=== PATIENT | male | born 1945 | race Caucasian/White ===

== ENCOUNTER 2020-10-16 15:38 | Emergency (ER) | payer MEDICARE, OTHER ==
[~2020-10-16] VITALS: Ht 165.1 cm; Wt 97.1 kg
[2020-10-16 15:43] VITALS: BP 183/53
--- NOTE | 2020-10-16 15:50 | ED Fall/Injury ---
General Chief Complaint: Trauma-Non Activation Stated Complaint: FALL - RIBS INJ History of Present Illness Date Seen by Provider: Oct 16, 2020 Time Seen by Provider: 15:50 Initial Comments 75-year-old male presents with right rib/chest wall pain. Patient reports he was walking when his feet got tangled and that he fell. When he fell he hit the ground is complaining of pain in his anterior right chest wall. Hurts with inspiration and palpation. Minor shortness of breath to the pain. He has a small abrasion size nonsuturable laceration on the palm of his left hand. Patient suffered no other injuries. Allergies and Home Medications Allergies Coded Allergies: verapamil (Verified Allergy, Unknown, 10/16/20) Patient Home Medication List Home Medication List Reviewed: Yes Review of Systems Review of Systems Constitutional: no symptoms reported; No chills, No fever Eyes: No Symptoms Reported Ears, Nose, Mouth, Throat: no symptoms reported Respiratory: short of breath (Due to pain) Cardiovascular: see HPI Gastrointestinal: no symptoms reported Genitourinary: no symptoms reported Musculoskeletal: see HPI Skin: see HPI Psychiatric/Neurological: No Symptoms Reported Past Djszgqu-Arbory-Hzoaco Hx Past Med/Social Hx: Reviewed Nursing Past Med/Soc Hx Physical Exam Vital Signs Vital Signs - First Documented 10/16/20 15:43 Temp 36.5 Pulse 60 Resp 18 B/P (MAP) 183/53 (96) Pulse Ox 97 O2 Delivery Room Air Capillary Refill : Height, Weight, BMI Height: '" Weight: lbs. oz. kg; BMI Method: General Appearance: mild distress HEENT: PERRL/EOMI Neck: full range of motion, supple Cardiovascular: normal peripheral pulses, regular rate, rhythm Respiratory: lungs clear, normal breath sounds, other (Right chest wall right below the breast tender to palpation, no crepitus noted) Gastrointestinal: non tender, soft Extremities: non-tender, normal inspection Neurologic/Psychiatric: alert, normal mood/affect, oriented x 3 Skin: other (Small abrasion/laceration on the palm of the left hand is nonsuturable) Progress/Results/Core Measures Results/Orders My Orders Orders - KATIA SAWANT DO Ribs/Unilateral With Chest (10/16/20 15:52) Dipht,Pertuss(Acell),Tet Adult (Boostrix (10/16/20 16:00) Medications Given in ED Current Medications Medications Dose Ordered Sig/Sandra Route Start Time Stop Time Status Last Admin Dose Admin Diphtheria/ Tetanus/Acell Pertussis 0.5 ml ONCE ONCE IM 10/16/20 16:00 10/16/20 16:01 DC 10/16/20 16:13 0.5 ML Vital Signs/I&O 10/16/20 15:43 Temp 36.5 Pulse 60 Resp 18 B/P (MAP) 183/53 (96) Pulse Ox 97 O2 Delivery Room Air Progress Progress Note : Progress Note Patient exam and x-ray consistent with rib fracture. Patient recommended to use 800 mg ibuprofen 3 times a day, 4% topical lidocaine with menthol, ice to affected area, I will prescribe him a few hydrocodone's for pain control. He should follow-up with a primary care provider as needed. Diagnostic Imaging Diagonstic Imaging: Xray Plain Films/CT/US/NM/MRI: chest Comments Date of Exam:10/16/20 RIBS/UNILATERAL WITH CHEST INDICATION: Fall with right mid chest pain. COMPARISON: None available. TECHNIQUE: PA chest with 2 views of the right ribs. FINDINGS: The lungs are clear. No pleural effusion or pneumothorax. Moderate size hiatal hernia. Heart is enlarged with a right pectoral single chamber pacemaker/ICD. Potential nondisplaced fracture in the anterior right 7th rib. IMPRESSION: 1. Potential nondisplaced fracture in the anterior right 7th rib. If this does not correspond to the site of pain, then this may simply represent summation of the normal costochondral junction. 2. No pneumothorax or other acute cardiopulmonary process. 3. Moderate size hiatal hernia. Reviewed: Reviewed by Me, Reviewed/Discussed Departure Impression Primary Impression: Closed rib fracture Qualified Codes: S22.31XA - Fracture of one rib, right side, initial encounter for closed fracture Disposition: HOME, SELF-CARE Condition: Stable Departure-Patient Inst. Referrals: ANDREA BATISTA MD (PCP/Family) Primary Care Physician Patient Instructions: Rib Fracture or Bruised Rib ED Add. Discharge Instructions: 800 mg ibuprofen 3 times daily as needed for pain 4% topical lidocaine with menthol over the affected area as directed on package as needed for pain Ice 2-3 times daily for 20 minutes as needed for pain All discharge instructions reviewed with patient and/or family. Voiced understanding. Scripts Hydrocodone/Acetaminophen (Hydrocodone-Acetamin 5-325 mg) 1 Each Tablet 1 TAB PO Q8H PRN for PAIN-MODERATE (5-7), #10 TAB Prov: KATIA SAWANT DO 10/16/20 KATIA ASWANT DO Oct 16, 2020 15:50
[2020-10-16] MEDS ORDERED: TETANUS,DIPTH,PERTUSS P/F (BOOSTRIX) 0.5 ML VIAL IM ONE (16:00)
--- NOTE | 2020-10-16 16:21 | Diagnostic Imaging Report ---
INDICATION: Fall with right mid chest pain. COMPARISON: None available. TECHNIQUE: PA chest with 2 views of the right ribs. FINDINGS: The lungs are clear. No pleural effusion or pneumothorax. Moderate size hiatal hernia. Heart is enlarged with a right pectoral single chamber pacemaker/ICD. Potential nondisplaced fracture in the anterior right 7th rib. IMPRESSION: 1. Potential nondisplaced fracture in the anterior right 7th rib. If this does not correspond to the site of pain, then this may simply represent summation of the normal costochondral junction. 2. No pneumothorax or other acute cardiopulmonary process. 3. Moderate size hiatal hernia. Dictated by: Dictated on workstation # [id number]
[2020-10-16] MEDS ORDERED: ACHD5005 PO (16:43)
== END 2020-10-16 16:52 | disposition home or self-care (01) ==
LOC: EDUNIT# 15:38 → ER FS 15:40
DX: Z48.02 Encounter for removal of sutures (principal)
CPT/HCPCS: 71101; 90715

== ENCOUNTER 2021-07-04 15:32 | Emergency (ER) | payer MEDICARE, OTHER ==
[~2021-07-04] VITALS: Ht 167.7 cm; Wt 101.6 kg
[~2021-07-04 15:32] MED LIST: ACHD5005 PO
--- NOTE | 2021-07-04 15:54 | ED Respiratory ---
General Chief Complaint: Abdominal/GI Problems Stated Complaint: CONGESTION,SOA,BODY ACHES Source: patient Exam Limitations: no limitations History of Present Illness Date Seen by Provider: Jul 04, 2021 Time Seen by Provider: 15:40 Initial Comments 75-year-old male with past medical history of HOCM, pAfib on Eliquis, HTN coming in due to worsening cough with shortness of breath, subjective fever with body aches for the past 2 weeks. He says he has been feeling more short of breath over the past week. He has had COVID vaccines x3 and has not had COVID that he knows of. Is unsure if he has been around anyone sick recently. Had Tylenol last around 6 hours ago. Denies any real chest pain, abdominal pain, nausea, vomiting, diarrhea, dysuria, weakness, numbness, rash, headache, vision changes, or any other concerns. He has been taking all of his medications as prescribed and has not missed any doses including of his Eliquis. Allergies and Home Medications Allergies Coded Allergies: verapamil (Verified Allergy, Unknown, 10/16/20) Patient Home Medication List Home Medication List Reviewed: Yes Hydrocodone/Acetaminophen (Hydrocodone-Acetamin 5-325 mg) 1 Each Tablet, 1 TAB PO Q8H PRN for PAIN-MODERATE (5-7) Prescribed by: KATIA SAWANT on 10/16/20 1982 Review of Systems Review of Systems Constitutional: No chills; fever EENTM: No blurred vision Respiratory: cough, short of breath Cardiovascular: no symptoms reported Gastrointestinal: no symptoms reported Genitourinary: no symptoms reported Musculoskeletal: no symptoms reported Skin: no symptoms reported Psychiatric/Neurological: No Symptoms Reported Hematologic/Lymphatic: No Symptoms Reported Immunological/Allergic: no symptoms reported All Other Systems Reviewed Negative Unless Noted: Yes Past Uahruey-Aohqwk-Fisgsv Hx Patient Social History Tobacco Use?: No Substance use?: No Alcohol Use?: No Seasonal Allergies Seasonal Allergies: No Past Medical History Surgeries: Yes (knee) Respiratory: No Cardiac: Yes Atrial Fibrillation, Cardiomyopathy Neurological: No Genitourinary: No Gastrointestinal: No Musculoskeletal: No Endocrine: No HEENT: No Cancer: No Psychosocial: No Integumentary: No Blood Disorders: No Physical Exam Vital Signs - First Documented 07/04/21 15:37 Temp 36.6 Pulse 89 Resp 18 B/P (MAP) 154/74 (100) O2 Delivery Room Air Capillary Refill : Height: '" Weight: lbs. oz. kg; 35.00 BMI Method: General Appearance: WD/WN, no apparent distress Eyes: Bilateral Eye Normal Inspection HEENT: PERRL/EOMI, normal ENT inspection, pharynx normal Neck: non-tender, full range of motion, supple, normal inspection Respiratory: chest non-tender, lungs clear, normal breath sounds, no respiratory distress, no accessory muscle use Cardiovascular: regular rate, rhythm, no edema Gastrointestinal: normal bowel sounds, non tender, soft; No distended, No guarding Extremities: normal range of motion, non-tender, normal inspection, no pedal edema, no calf tenderness, normal capillary refill Neurologic/Psychiatric: no motor/sensory deficits, alert, normal mood/affect Skin: normal color, warm/dry Lymphatic: no adenopathy Progress/Results/Core Measures Suspected Sepsis SIRS Temperature: Pulse: Respiratory Rate: Laboratory Tests 07/04/21 16:00: White Blood Count 11.2H Blood Pressure / Mean: Laboratory Tests 07/04/21 16:00: Creatinine 0.83, INR Comment 1.1, Platelet Count 167, Total Bilirubin 0.5 Results/Orders Lab Results Laboratory Tests Test 07/04/21 16:00 07/04/21 16:05 Range/Units White Blood Count 11.2 H 4.3-11.0 10^3/uL Red Blood Count 3.58 L 4.30-5.52 10^6/uL Hemoglobin 11.4 L 13.3-17.7 g/dL Hematocrit 33 L 40-54 % Mean Corpuscular Volume 93 80-99 fL Mean Corpuscular Hemoglobin 32 25-34 pg Mean Corpuscular Hemoglobin Concent 34 32-36 g/dL Red Cell Distribution Width 13.0 10.0-14.5 % Platelet Count 167 130-400 10^3/uL Mean Platelet Volume 11.3 9.0-12.2 fL Immature Granulocyte % (Auto) 0 % Neutrophils (%) (Auto) 71 42-75 % Lymphocytes (%) (Auto) 11 L 12-44 % Monocytes (%) (Auto) 15 H 0-12 % Eosinophils (%) (Auto) 3 0-10 % Basophils (%) (Auto) 1 0-10 % Neutrophils # (Auto) 8.0 H 1.8-7.8 10^3/uL Lymphocytes # (Auto) 1.2 1.0-4.0 10^3/uL Monocytes # (Auto) 1.6 H 0.0-1.0 10^3/uL Eosinophils # (Auto) 0.3 0.0-0.3 10^3/uL Basophils # (Auto) 0.1 0.0-0.1 10^3/uL Immature Granulocyte # (Auto) 0.0 0.0-0.1 10^3/uL Prothrombin Time 14.7 12.2-14.7 SEC INR Comment 1.1 0.8-1.4 Activated Partial Thromboplast Time 40 H 24-35 SEC Sodium Level 137 135-145 MMOL/L Potassium Level 3.9 3.6-5.0 MMOL/L Chloride Level 103 98-107 MMOL/L Carbon Dioxide Level 23 21-32 MMOL/L Anion Gap 11 5-14 MMOL/L Blood Urea Nitrogen 12 7-18 MG/DL Creatinine 0.83 0.60-1.30 MG/DL Estimat Glomerular Filtration Rate 92 BUN/Creatinine Ratio 14 Glucose Level 169 H 70-105 MG/DL Calcium Level 8.8 8.5-10.1 MG/DL Corrected Calcium 8.9 8.5-10.1 MG/DL Total Bilirubin 0.5 0.1-1.0 MG/DL Aspartate Amino Transf (AST/SGOT) 27 5-34 U/L Alanine Aminotransferase (ALT/SGPT) 25 0-55 U/L Alkaline Phosphatase 80 40-136 U/L Troponin I < 0.30 <0.30 NG/ML Pro-B-Type Natriuretic Peptide 939.6 H <75.0 PG/ML Total Protein 6.7 6.4-8.2 GM/DL Albumin 3.9 3.2-4.5 GM/DL Influenza Type A Antigen NEGATIVE NEGATIVE Influenza Type B Antigen NEGATIVE NEGATIVE My Orders Orders - MANGO MACDONALD MD Cbc With Automated Diff (07/04/21 15:49) Chest 1 View Ap/Pa Only (07/04/21 15:49) Ekg Tracing (07/04/21 15:49) Comprehensive Metabolic Panel (07/04/21 15:49) Protime With Inr (07/04/21 15:49) Partial Thromboplastin Time (07/04/21 15:49) O2 (07/04/21 15:49) Monitor-Rhythm Ecg Trace Only (07/04/21 15:49) Ed Iv/Invasive Line Start (07/04/21 15:49) Troponin I Fs (07/04/21 15:49) Probnp Fs (07/04/21 15:49) Covid 19 Inhouse Test (07/04/21 15:49) Influenza A & B Antigens (07/04/21 15:49) Vital Signs/I&O 07/04/21 07/04/21 15:37 15:37 Temp 36.6 Pulse 89 Resp 18 B/P (MAP) 154/74 (100) O2 Delivery Room Air Room Air Capillary Refill : Progress Note : Progress Note 75-year-old male with above history coming in due to a couple weeks of viral symptoms including cough and shortness of breath. ABCs were intact and vitals were stable on presentation. Physical exam was reassuring with no focal abnormalities including clear lungs. He appears to be breathing comfortably mos t importantly. Chest x-ray clear on my interpretation with no signs of pneumonia or pneumothorax. An IV was placed and basic labs were obtained including a negative troponin, BNP around 900 with no prior baseline. He does have some lower extremity edema that is mild. He does take Lasix daily. Flu test is negative and Covid test is pending at this time. Likely does have some type of viral infection that is brewing versus COVID. He is fully vaccinated and boosted and given he is not requiring oxygen I believe he is appropriate for discharge home. He was sent home with strict return precautions. ECG Initial ECG Impression Date: Jul 04, 2021 Initial ECG Impression Time: 15:54 Initial ECG Rate: 61 Initial ECG Rhythm: Normal Sinus Comment Narrow QRS, normal axis, no significant ST changes, T wave inversions in the high lateral leads and some flattening in the inferior leads, baseline artifact, no prior EKG to compare to Diagnostic Imaging Diagonstic Imaging: Xray (chest) Comments [facility]Push Computing [facility]. [place], [place] NAME: ANDREA BOOKER [facility] REC#: [id number] PT STATUS: REG ER : 1945 PHYSICIAN: MANGO MACDONALD MD ADMIT DATE: 07/04/21/ER FS Draft Date of Exam:07/04/21 CHEST 1 VIEW AP/PA ONLY INDICATION: Dyspnea. COMPARISON: 10/16/2020. FINDINGS: There is borderline cardiomegaly. Pulmonary vascularity is at the upper limits of normal. There is focal increased density in the mid portion of the right lung. This area may have been obscured by pacemaker battery on the previous study. No pneumothorax or definite pleural fluid is identified. IMPRESSION: Focal density lateral to the right hilum may represent area of focal infiltrate or scarring. This region was obscured on the previous study, which limits comparison. Otherwise, no acute abnormality is seen. Dictated on workstation # [id number] Dict: 07/04/21 1610 Trans: 07/04/21 1613 [id number] Interpreted by: INDIRA JONES MD Electronically signed by: Departure Impression Primary Impression: URI (upper respiratory infection) Qualified Codes: J06.9 - Acute upper respiratory infection, unspecified Additional Impression: Person under investigation for COVID-19 Disposition: 01 HOME, SELF-CARE Condition: Stable Departure-Patient Inst. Decision time for Depature: 17:01 Referrals: ANDREA BATISTA MD (PCP/Family) Primary Care Physician Patient Instructions: Upper Respiratory Infection ED Add. Discharge Instructions: You were seen in the emergency department for cough and shortness of breath. Your Covid test is pending and should be back tomorrow. Your flu test is negative and your chest x-ray looks clear, so you have no signs of pneumonia. Please follow-up with your regular doctor in the next 3 days or sooner if you are not feeling better. If you begin having chest pain or severe shortness of breath please come back to the ER. I recommend doubling the dose of your Lasix for the next couple of days. MANGO MACDONALD MD Jul 04, 2021 15:54
[2021-07-04 16:04] LABS: BASOPHILS # (AUTO) 0.1 10^3/uL (0.0-0.1); BASOPHILS % (AUTO) 1 % (0-10); EOSINOPHILS # (AUTO) 0.3 10^3/uL (0.0-0.3); EOSINOPHILS % (AUTO) 3 % (0-10); HEMATOCRIT 33 % (40-54); HEMOGLOBIN 11.4 g/dL (13.3-17.7); LYMPHOCYTES # (AUTO) 1.2 10^3/uL (1.0-4.0); LYMPHOCYTES % (AUTO) 11 % (12-44); MEAN CORPUSCULAR HEMOGLOBIN 32 pg (25-34); MEAN CORPUSCULAR HGB CONC 34 g/dL (32-36); MEAN CORPUSCULAR VOLUME 93 fL (80-99); MEAN PLATELET VOLUME 11.3 fL (9.0-12.2); MONOCYTES # (AUTO) 1.6 10^3/uL (0.0-1.0); MONOCYTES % (AUTO) 15 % (0-12); NEUTROPHILS % (AUTO) 71 % (42-75); PLATELET COUNT 167 10^3/uL (130-400); WHITE BLOOD COUNT 11.2 10^3/uL (4.3-11.0)
--- NOTE | 2021-07-04 16:13 | Diagnostic Imaging Report ---
INDICATION: Dyspnea. COMPARISON: 10/16/2020. FINDINGS: There is borderline cardiomegaly. Pulmonary vascularity is at the upper limits of normal. There is focal increased density in the mid portion of the right lung. This area may have been obscured by pacemaker battery on the previous study. No pneumothorax or definite pleural fluid is identified. IMPRESSION: Focal density lateral to the right hilum may represent area of focal infiltrate or scarring. This region was obscured on the previous study, which limits comparison. Otherwise, no acute abnormality is seen. Dictated by: Dictated on workstation # [id number]
[2021-07-04 16:18] LABS: INR 1.1 (0.8-1.4); PROTHROMBIN TIME PATIENT 14.7 SEC (12.2-14.7)
[2021-07-04 16:30] LABS: ALBUMIN 3.9 GM/DL (3.2-4.5); BILIRUBIN,TOTAL 0.5 MG/DL (0.1-1.0); CALCIUM 8.8 MG/DL (8.5-10.1); CREATININE SERUM 0.83 MG/DL (0.60-1.30); POTASSIUM 3.9 MMOL/L (3.6-5.0); TOTAL PROTEIN 6.7 GM/DL (6.4-8.2)
[2021-07-04 17:15] VITALS: BP 148/76
== END 2021-07-04 17:15 | disposition home or self-care (01) ==
LOC: EDUNIT# 15:32 → ER FS 15:33
DX: J06.9 Acute upper respiratory infection, unspecified (principal); I48.0 Paroxysmal atrial fibrillation; Z20.822 Contact with and (suspected) exposure to COVID-19; Z79.01 Long term (current) use of anticoagulants
CPT/HCPCS: 36415; 71045; 80053; 83880; 84484; 85025; 85610; 85730; 87636; 87804; 93005; 93041

== ENCOUNTER 2022-04-12 03:35 | Emergency (ER) | payer MEDICARE ==
[~2022-04-12] VITALS: Ht 165.1 cm; Wt 92.0 kg
[2022-04-12] MEDS ORDERED: NS IV 500 ML 500 ML IV STA (03:49)
[2022-04-12] MEDS ORDERED: morphine INJ 10 MG/ML 1ML (SYR OR VIAL) IVP STA (03:49)
--- NOTE | 2022-04-12 03:53 | ED Abdominal Pain ---
General Stated Complaint: LT SIDE PAIN Source of Information: Patient Exam Limitations: No Limitations History of Present Illness Date Seen by Provider: Apr 12, 2022 Time Seen by Provider: 03:40 Initial Comments 76-year-old male presents to the emergency department today for right lower flank pain. He states symptoms started about 4:00 this afternoon yesterday. He does have a history of kidney stones but has not had one for about 10 years. He states this pain feels exactly the same as previous pain with kidney stones. No hematuria, dysuria. No changes in bowels with last bowel movement yesterday. No nausea vomiting or fevers. Pain is described as sharp stabbing constant without radiation, aggravating or alleviating factors. Severe. Allergies and Home Medications Allergies Coded Allergies: verapamil (Verified Allergy, Unknown, 10/16/20) Penicillins (Unverified Adverse Reaction, Unknown, 04/12/22) Patient Home Medication List Home Medication List Reviewed: Yes Apixaban (Eliquis) 5 Mg Tablet, 5 MG PO BID, (Reported) Entered as Reported by: JAQUELINE RIVERA on 04/12/22405 Last Action: New Order Cyclobenzaprine HCl (Cyclobenzaprine HCl) 10 Mg Tablet, 10 MG PO Q8H PRN for SPASMS, (Reported) Entered as Reported by: JAQUELINE RIVERA on 04/12/22405 Last Action: New Order Furosemide (Furosemide) 20 Mg Tablet, 20 MG PO DAILY, (Reported) Entered as Reported by: JAQUELINE RIVERA on 04/12/22405 Last Action: New Order Hydrocodone/Acetaminophen (Hydrocodone-Acetamin 5-325 mg) 1 Each Tablet, 1 TAB PO Q8H PRN for PAIN-MODERATE (5-7) Prescribed by: KATIA SAWANT on 10/16/20 1644 Spironolactone (Aldactone) 25 Mg Tablet, 25 MG PO DAILY, (Reported) Entered as Reported by: JAQUELINE RIVERA on 04/12/22405 Last Action: New Order Tamsulosin HCl (Flomax) 0.4 Mg Cap, 0.4 MG PO DAILY, (Reported) Entered as Reported by: JAQUELINE RIVERA on 04/12/22405 Last Action: New Order Zolpidem Tartrate (Ambien) 10 Mg Tablet, 10 MG PO HS, (Reported) Entered as Reported by: JAQUELINE RIVERA on 04/12/22 0406 Last Action: New Order Review of Systems Review of Systems Constitutional: no symptoms reported EENTM: No Symptoms Reported Respiratory: No Symptoms Reported Cardiovascular: No Symptoms Reported Gastrointestinal: No Symptoms Reported Genitourinary: Denies Burning, Denies Frequency; Flank Pain; Denies Hematuria Musculoskeletal: no symptoms reported Skin: no symptoms reported Psychiatric/Neurological: No Symptoms Reported Endocrine: No Symptoms Reported Hematologic/Lymphatic: No Symptoms Reported Past Awjnsqo-Icxscz-Qckrzd Hx Patient Social History Tobacco Use?: No Use of E-Cig and/or Vaping dev: No Substance use?: No Alcohol Use?: No Seasonal Allergies Seasonal Allergies: No Past Medical History Surgeries: Yes (knee) Respiratory: No Cardiac: Yes Atrial Fibrillation, Cardiomyopathy Neurological: No Genitourinary: No Gastrointestinal: No Musculoskeletal: No Endocrine: No HEENT: No Cancer: No Psychosocial: No Integumentary: No Blood Disorders: No Family Medical History Reviewed Nursing Family Hx No Pertinent Family Hx Physical Exam Vital Signs Vital Signs - First Documented 04/12/22 03:35 Temp 36.4 Pulse 67 Resp 20 B/P (MAP) 171/57 (95) Pulse Ox 95 O2 Delivery Room Air Capillary Refill : Height/Weight/BMI Height: '" Weight: lbs. oz. kg; 36.00 BMI Method: General Appearance: WD/WN, no apparent distress HEENT: normal ENT inspection, pharynx normal Neck: non-tender, supple, normal inspection Respiratory: chest non-tender, lungs clear, normal breath sounds, no respiratory distress, no accessory muscle use Cardiovascular: regular rate, rhythm, no edema, no murmur Gastrointestinal: normal bowel sounds, non tender, soft, no organomegaly Extremities: normal range of motion, non-tender, normal inspection, no pedal edema, no calf tenderness, normal capillary refill Back: normal inspection, no vertebral tenderness Neurologic/Psychiatric: alert, normal mood/affect, oriented x 3 Skin: normal color, warm/dry Lymphatic: no adenopathy Progress/Results/Core Measures Results/Orders Lab Results Laboratory Tests Test 04/12/22 03:57 Range/Units White Blood Count 9.1 4.3-11.0 10^3/uL Red Blood Count 3.94 L 4.30-5.52 10^6/uL Hemoglobin 11.5 L 13.3-17.7 g/dL Hematocrit 34 L 40-54 % Mean Corpuscular Volume 87 80-99 fL Mean Corpuscular Hemoglobin 29 25-34 pg Mean Corpuscular Hemoglobin Concent 34 32-36 g/dL Red Cell Distribution Width 13.1 10.0-14.5 % Platelet Count 181 130-400 10^3/uL Mean Platelet Volume 11.3 9.0-12.2 fL Immature Granulocyte % (Auto) 0 % Neutrophils (%) (Auto) 70 42-75 % Lymphocytes (%) (Auto) 13 12-44 % Monocytes (%) (Auto) 14 H 0-12 % Eosinophils (%) (Auto) 3 0-10 % Basophils (%) (Auto) 1 0-10 % Neutrophils # (Auto) 6.4 1.8-7.8 10^3/uL Lymphocytes # (Auto) 1.2 1.0-4.0 10^3/uL Monocytes # (Auto) 1.2 H 0.0-1.0 10^3/uL Eosinophils # (Auto) 0.3 0.0-0.3 10^3/uL Basophils # (Auto) 0.1 0.0-0.1 10^3/uL Immature Granulocyte # (Auto) 0.0 0.0-0.1 10^3/uL Sodium Level 135 135-145 MMOL/L Potassium Level 4.2 3.6-5.0 MMOL/L Chloride Level 101 98-107 MMOL/L Carbon Dioxide Level 24 21-32 MMOL/L Anion Gap 10 5-14 MMOL/L Blood Urea Nitrogen 17 7-18 MG/DL Creatinine 0.95 0.60-1.30 MG/DL Estimat Glomerular Filtration Rate 84 BUN/Creatinine Ratio 18 Glucose Level 153 H 70-105 MG/DL Calcium Level 8.9 8.5-10.1 MG/DL Corrected Calcium 8.8 8.5-10.1 MG/DL Total Bilirubin 0.3 0.1-1.0 MG/DL Aspartate Amino Transf (AST/SGOT) 16 5-34 U/L Alanine Aminotransferase (ALT/SGPT) 12 0-55 U/L Alkaline Phosphatase 89 40-136 U/L Total Protein 6.6 6.4-8.2 GM/DL Albumin 4.1 3.2-4.5 GM/DL My Orders Orders - NELLY JAUREGUI DO Cbc With Automated Diff (04/12/22 03:49) Comprehensive Metabolic Panel (04/12/22 03:49) Ua Culture If Indicated (04/12/22 03:49) Ns Iv 500 Ml (Sodium Chloride 0.9%) (04/12/22 03:49) Morphine Injection (Morphine Injection (04/12/22 03:49) Ketorolac Injection (Toradol Injection) (04/12/22 04:00) Medications Given in ED Current Medications Medications Dose Ordered Sig/Sandra Route Start Time Stop Time Status Last Admin Dose Admin Ketorolac Tromethamine 15 mg ONCE ONCE IVP 04/12/22 04:00 04/12/22 04:01 DC 04/12/22 04:05 15 MG Vital Signs/I&O 04/12/22 03:35 Temp 36.4 Pulse 67 Resp 20 B/P (MAP) 171/57 (95) Pulse Ox 95 O2 Delivery Room Air Departure Communication (Admissions) Patient is hemodynamically stable. Pain greatly improved with the provided pain medication, now sleeping and resting comfortably in the bed. He does have significant hematuria with no evidence for infection. I believe this is likely renal colic related to kidney stone. He has had this in the past with the exact same symptoms. No indication for further imaging at this time. Given strict return precautions for severe pain not controlled with medicines, fevers or concerning symptoms. He states understanding. He is discharged home in stable condition with pain control, nausea medicine. He is already on Flomax. He was given IV fluids here. Impression Primary Impression: Right flank pain Additional Impression: Renal colic on right side Disposition: 01 HOME, SELF-CARE Condition: Stable Departure-Patient Inst. Referrals: ANDREA BATISTA MD (PCP/Family) Primary Care Physician Patient Instructions: Kidney Stone, Adult ED Add. Discharge Instructions: Take the provided medication as needed for pain. Take Zofran as needed for nausea. Do not drive or make important decisions while taking the pain medication as it may make you drowsy. Do not take any other products containing Tylenol while taking this pain medication however you may use other anti- inflammatory medicine such as Motrin or Aleve which may help intermittently with your pain as well. Increase your fluids at home, rest. Should you develop fevers, severe pain is not controlled with the provided medications and recommendations, or if your symptoms change in any way concerning to you should return to the emergency department immediately. Follow-up with your primary doctor in 48 hours for recheck. Scripts Ondansetron (Ondansetron Odt) 8 Mg Tab.rapdis 8 MG SL Q6H PRN for NAUSEA/VOMITING for 3 Days, #12 TAB Prov: NELLY JAUREGUI DO 04/12/22 Hydrocodone Bit/Acetaminophen (HYDROcodone/APAP 5 MG/325 MG TAB) 1 Tab Tab 1 TAB PO Q6H for Pain for 3 Days, #12 TAB Prov: NELLY JAUREGUI DO 04/12/22 NELLY JAUREGUI DO Apr 12, 2022 03:53
[2022-04-12] MEDS ORDERED: KETOROLAC 15 MG/ML VIAL IVP ONE (04:00)
[2022-04-12 04:06] LABS: BASOPHILS # (AUTO) 0.1 10^3/uL (0.0-0.1); BASOPHILS % (AUTO) 1 % (0-10); EOSINOPHILS # (AUTO) 0.3 10^3/uL (0.0-0.3); EOSINOPHILS % (AUTO) 3 % (0-10); HEMATOCRIT 34 % (40-54); HEMOGLOBIN 11.5 g/dL (13.3-17.7); LYMPHOCYTES # (AUTO) 1.2 10^3/uL (1.0-4.0); LYMPHOCYTES % (AUTO) 13 % (12-44); MEAN CORPUSCULAR HEMOGLOBIN 29 pg (25-34); MEAN CORPUSCULAR HGB CONC 34 g/dL (32-36); MEAN CORPUSCULAR VOLUME 87 fL (80-99); MEAN PLATELET VOLUME 11.3 fL (9.0-12.2); MONOCYTES # (AUTO) 1.2 10^3/uL (0.0-1.0); MONOCYTES % (AUTO) 14 % (0-12); NEUTROPHILS # (AUTO) 6.4 10^3/uL (1.8-7.8); NEUTROPHILS % (AUTO) 70 % (42-75); PLATELET COUNT 181 10^3/uL (130-400); WHITE BLOOD COUNT 9.1 10^3/uL (4.3-11.0)
[2022-04-12] MEDS ORDERED: SPIR25TA PO (04:06)
[2022-04-12] MEDS ORDERED: APIX5TAB PO (04:06)
[2022-04-12] MEDS ORDERED: TMSL.4C PO (04:06)
[2022-04-12] MEDS ORDERED: CYCL10TA25 PO (04:06)
[2022-04-12] MEDS ORDERED: ZOLP10TA PO (04:06)
[2022-04-12] MEDS ORDERED: FURO20TA4 PO (04:06)
[2022-04-12 04:36] LABS: CREATININE SERUM 0.95 MG/DL (0.60-1.30); POTASSIUM 4.2 MMOL/L (3.6-5.0)
[2022-04-12 04:37] LABS: ALBUMIN 4.1 GM/DL (3.2-4.5); BILIRUBIN,TOTAL 0.3 MG/DL (0.1-1.0); CALCIUM 8.9 MG/DL (8.5-10.1); TOTAL PROTEIN 6.6 GM/DL (6.4-8.2)
[2022-04-12] MEDS ORDERED: ONDA8TAB13 SL (04:51)
[2022-04-12] MEDS ORDERED: ACHD5005 PO (04:51)
[2022-04-12 05:09] LABS: BILIRUBIN,URINE NEGATIVE (NEGATIVE); CLARITY,URINE CLEAR; COLOR,URINE YELLOW; GLUCOSE, URINE (UA) NEGATIVE (NEGATIVE); KETONES,URINE NEGATIVE (NEGATIVE); LEUKOCYTE ESTERASE ,URINE NEGATIVE (NEGATIVE); NITRITE,URINE NEGATIVE (NEGATIVE); PH,URINE 5.5 (5-9); PROTEIN,URINE NEGATIVE (NEGATIVE)
[2022-04-12 05:19] LABS: BACTERIA,URINE NEGATIVE /HPF; RBC,URINE RARE /HPF; SQUAMOUS EPITHELIAL CELL,UR RARE /HPF; WBC,URINE RARE /HPF
[2022-04-12 05:30] VITALS: BP 168/54
== END 2022-04-12 05:30 | disposition home or self-care (01) ==
LOC: EDUNIT# 03:35 → ER FS 03:38
DX: N23 Unspecified renal colic (principal); R31.9 Hematuria, unspecified; Z87.442 Personal history of urinary calculi
CPT/HCPCS: 36415; 80053; 81000; 85025; 99282

== ENCOUNTER 2023-02-02 15:22 | Emergency (ER) | payer OTHER, MEDICARE ==
[~2023-02-02] VITALS: Ht 165 cm; Wt 100.0 kg
[~2023-02-02 15:22] MED LIST changes: +APIX5TAB PO; +CYCL10TA25 PO; +FURO20TA4 PO; +ONDA8TAB13 SL; +SPIR25TA PO; +TMSL.4C PO; +ZOLP10TA PO
[2023-02-02 15:40] LABS: HEMATOCRIT 38 % (40-54); HEMOGLOBIN 12.2 g/dL (13.3-17.7); MEAN CORPUSCULAR HEMOGLOBIN 29 pg (25-34); MEAN CORPUSCULAR HGB CONC 32 g/dL (32-36); MEAN CORPUSCULAR VOLUME 90 fL (80-99); MEAN PLATELET VOLUME 11.5 fL (9.0-12.2); PLATELET COUNT 188 10^3/uL (130-400)
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
[2023-02-02 15:56] LABS: BUN/CREATININE RATIO 22; CALCIUM 8.8 MG/DL (8.5-10.1); CARBON DIOXIDE 20 MMOL/L (21-32); CHLORIDE 104 MMOL/L (98-107); GFR ESTIMATED 89; GLUCOSE 276 MG/DL (70-105); POTASSIUM 4.3 MMOL/L (3.6-5.0); SODIUM 137 MMOL/L (135-145)
[2023-02-02 15:57] LABS: BILIRUBIN,DIRECT < 0.2 MG/DL (0.0-0.3)
[2023-02-02 16:10] LABS: ALANINE AMINOTRANSFERASE 17 U/L (0-55); ALKALINE PHOSPHATASE 95 U/L (40-136); BILIRUBIN,INDIRECT 0.3 MG/DL; BILIRUBIN,TOTAL < 0.5 MG/DL (0.1-1.0); TOTAL PROTEIN 6.7 GM/DL (6.4-8.2)
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
[2023-02-02 16:47] VITALS: BP 158/73
== END 2023-02-02 16:50 | disposition home or self-care (01) ==
LOC: EDUNIT# 15:22 → ER FS 15:22
DX: S29.012A Strain of muscle and tendon of back wall of thorax, initial encounter (principal); E11.65 Type 2 diabetes mellitus with hyperglycemia; I48.91 Unspecified atrial fibrillation; E66.9 Obesity, unspecified; Z79.01 Long term (current) use of anticoagulants; Z68.36 Body mass index [BMI] 36.0-36.9, adult; Z79.899 Other long term (current) drug therapy; V89.2XXA Person injured in unspecified motor-vehicle accident, traffic, initial encounter; Y92.410 Unspecified street and highway as the place of occurrence of the external cause
CPT/HCPCS: 36415; 70450; 71045; 72125; 72128; 73010; 80048; 80076; 82947; 84484; 85027; 99284; G0480; 80320